=== PATIENT | female | born 1995 | race Caucasian/White ===

== ENCOUNTER 2016-12-12 23:30 | Inpatient (IN) | payer OTHER ==
[~2016-12-12] VITALS: Ht 162.6 cm; Wt 67.8 kg
[2016-12-12 23:20] VITALS: O2SAT 100
[2016-12-12] MEDS ORDERED: MORPHINE SULFATE 8 MG/ML INJ ONE (23:33)
[2016-12-12] MEDS ORDERED: ONDANSETRON HCL 4 MG/2 ML VIAL ONE (23:33)
[2016-12-12] MEDS ORDERED: DIPHTH/TETANUS/ACEL PERTUSSIS (BOOSTER) 0.5 ML VIAL/PFS IM ONE (23:38)
[2016-12-12] MEDS ORDERED: LORazepam 2 MG/ML VIAL ONE (23:43)
[2016-12-12 23:52] LABS: I-STAT POTASSIUM 4.4 MMOL/L (3.5-4.9); I-STAT SODIUM 143 MMOL/L (138-146)
[2016-12-12 23:54] LABS: AUTOMATED NEUTROPHIL # 9.6 TH/MM3 (1.8-7.7); BASOPHIL % 0.4 % (0.0-2.0); EOSINOPHIL % 0.1 % (0.0-4.0); HEMATOCRIT 36.5 % (35.0-46.0); HEMO FLAGS DIFF FINAL; LYMPH % 13.3 % (9.0-44.0); LYMPHOCYTE # 1.6 TH/MM3 (1.0-4.8); MEAN CELL VOLUME 84.2 FL (80.0-100.0); MEAN CORPUSCULAR HEMOGLOBIN 29.9 PG (27.0-34.0); MEAN CORPUSCULAR HGB CONC 35.5 % (32.0-36.0); MONO % 6.5 % (0.0-8.0); NEUT % 79.7 % (16.0-70.0); PLATELET COUNT 273 TH/MM3 (150-450); RED BLOOD COUNT 4.34 MIL/MM3 (4.00-5.30); RED CELL DISTRIBUTION WIDTH 13.8 % (11.6-17.2)
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
[2016-12-13] MEDS ORDERED: IOHEXOL 350 MG/ML 10 ML VIAL (for RAD DIAG) IV ONE (00:03)
[2016-12-13 00:08] LABS: PROTHROMBIN TIME - PATIENT 11.4 SEC (9.8-11.6)
[2016-12-13 00:13] LABS: BETA HCG QUANT LESS THAN 1 MIU/ML (0-5)
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
[2016-12-13] MEDS ORDERED: NALOXONE HCL 0.4 MG/ML AMP IV PRN (00:15)
[2016-12-13] MEDS ORDERED: ONDANSETRON HCL 4 MG/2 ML VIAL IV PRN (00:15)
[2016-12-13] MEDS ORDERED: Post-op Orders (for Pharmacy) MISC XX ONE (00:15)
[2016-12-13] MEDS ORDERED: SODIUM CHLORIDE 0.9% FLUSH 5 ML FLUSH IVF PRN (00:15)
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
[2016-12-13] MEDS ORDERED: PANTOPRAZOLE SODIUM 40 MG VIAL IV SCH (01:00)
[2016-12-13] MEDS: SODIUM CHLOR 0.9% 1000 ML INJ 1,000 ML IV SCH ×2 (01:33→08:13)
[2016-12-13] MEDS: MORPHINE SULFATE 4 MG/ML INJ IV PRN ×5 (01:34→11:39)
[2016-12-13 01:58] VITALS: BP 112/56; TEMP 98.5
[2016-12-13 02:39] VITALS: BP 108/72; PULSE 118; RESP 22; TEMP 97.8; O2SAT 99
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
[2016-12-13 08:00] VITALS: BP 119/66; PULSE 110; RESP 18; TEMP 97.6; O2SAT 100
[2016-12-13] MEDS ORDERED: DOCUSATE SODIUM 100 MG CAP PO SCH (09:00)
[2016-12-13] MEDS ORDERED: DOCUSATE SODIUM 50 MG/SENNA 8.6 MG TAB PO SCH (09:00)
[2016-12-13] MEDS ORDERED: MAGNESIUM HYDROXIDE SUSP 30 ML CUP PO SCH (09:00)
[2016-12-13] MEDS ORDERED: SODIUM CHLORIDE 0.9% FLUSH 5 ML FLUSH IVF SCH (09:00)
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
[2016-12-13 12:00] VITALS: BP 106/62; PULSE 85; RESP 15; TEMP 98.7; O2SAT 99
[2016-12-13] MEDS ORDERED: WHEEMIS3 (12:26)
[2016-12-13] MEDS ORDERED: oxyCODONE/ACETAMINOPHEN 10 MG/325 MG TAB PO PRN (12:30)
[2016-12-13] MEDS ORDERED: BACITRACIN TOP OINT 15 GM TUBE TOP SCH (13:00)
[2016-12-13] MEDS ORDERED: PERC10TA27 PO (13:38)
[2016-12-13 14:10] VITALS: RESP 20
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
== END 2016-12-13 14:35 | disposition home or self-care (01) | DRG 563 ==
LOC: NEPE 23:30 → NEDA 12-13 00:29 → EDBD 12-13 00:29 → N07B 12-13 02:09
PROVIDERS: ADMIT Surgery; ATTEND Surgery
DX: S82.841A Displaced bimalleolar fracture of right lower leg, initial encounter for closed fracture (principal); S51.011A Laceration without foreign body of right elbow, initial encounter; S50.311A Abrasion of right elbow, initial encounter; S91.331A Puncture wound without foreign body, right foot, initial encounter; S70.311A Abrasion, right thigh, initial encounter; V09.20XA Pedestrian injured in traffic accident involving unspecified motor vehicles, initial encounter; Y92.488 Other paved roadways as the place of occurrence of the external cause; Y93.9 Activity, unspecified
CPT/HCPCS: 70450; 71010; 71260; 72125; 72170; 73070; 73100; 73551; 73590; 73610; 73620; 74177; 80320; 82435; 82565; 82947; 84132; 84295; 84520; 84702; 85025; 85610; 85730; 86850; 86900; 86901; 90471; 90715; 94150; 96374; 96375; 99291; C9113; E0113; G0390; J2060; J2270; J2405; J7030; Q9967